=== PATIENT | female | born 1995 | race Caucasian/White ===

== ENCOUNTER → 2022-05-15 10:37 | Outpatient (CLI) | payer OTHER, SELFPAY ==
--- NOTE | ~2022-05-15 | XR_ITS ---
XR lumbar spine 2-3V 05/15/2022 11:15 Indication: Back pain Procedure: 3 views lumbar spine Comparison: No prior studies for comparison. Findings: There is mild disc narrowing at L5-S1. There is facet hypertrophy at this level. No fractur e, subluxation or dislocation. Pedicles intact. Mild dextroscoliosis. There are cholecystectomy clips . Impression: 1: Mild spondylosis at L5-S1. Reviewed, dictated and finalized at location A. Impression: 1: Mild spondylosis at L5-S1.
--- NOTE | ~2022-05-15 | XR_ITS ---
XR pelvis 1-2V 05/15/2022 11:15 INDICATION: Pelvic pain PROCEDURE: AP pelvis COMPARISON: No prior studies for comparison. FINDINGS: Fracture, dislocation or subluxation is not identified. Pelvic rings are intact. Sacral for amen are symmetric. The soft tissues appear within normal limits. No foreign bodies are identified. IMPRESSION: 1: NO ACUTE BONE OR JOINT ABNORMALITY IDENTIFIED. Reviewed, dictated and finalized at location A.
--- NOTE | ~2022-05-15 | XR_ITS ---
XR_CERV2-3V_CR 05/15/2022 11:15 Indication: Neck pain Procedure: 3 views cervical spine Comparison: No prior studies for comparison. Findings: Vertebral body heights are maintained. No fracture, subluxation or dislocation. Lung apices are normal. Odontoid process is normal. Lateral masses normally aligned. There is straightening of c ervical lordosis, possibly due to muscle spasm. Impression: 1: No significant abnormality of the cervical spine. Reviewed, dictated and finalized at location A. Impression: 1: No significant abnormality of the cervical spine.
--- NOTE | ~2022-05-15 | XR_ITS ---
XR thoracic spine 2V 05/15/2022 11:15 Indication: Back pain Procedure: 3 views thoracic spine Comparison: No prior studies for comparison. Findings: Normal thoracic alignment. Vertebral body heights are maintained. No fracture, subluxation or dislocation. No paraspinal soft tissue abnormality. Pedicles are intact. Surrounding osseous struc tures are unremarkable. Impression: 1: No significant abnormality of the thoracic spine. Reviewed, dictated and finalized at location A. Impression: 1: No significant abnormality of the thoracic spine.
== END ==
PROVIDERS: PCP Nurse Practitioner Family; Visit Provider Chiropractor
DX: M54.2 Cervicalgia (principal); R20.2 Paresthesia of skin; M25.551 Pain in right hip; M25.552 Pain in left hip; M54.50 Low back pain, unspecified; M54.16 Radiculopathy, lumbar region; M47.897 Other spondylosis, lumbosacral region
CPT/HCPCS: 72040; 72070; 72100; 72170